=== PATIENT | female | born 1975 | race African-American/Black ===

== ENCOUNTER 2020-04-08 15:18 | Inpatient (IN) | payer MEDICAID, OTHER, SELFPAY ==
[~2020-04-08] VITALS: Ht 172.7 cm; Wt 150.4 kg
[2020-04-08] MEDS ORDERED: ZINC SULFATE 220mg CAP or TAB PO ONE (15:30)
[2020-04-08] MEDS ORDERED: methylPREDNISolone SOD SUCC 125 MG/2 ML VL IV ONE (15:30)
[2020-04-08] MEDS ORDERED: ASCORBIC ACID 500 MG TAB PO ONE (15:30)
[2020-04-08] MEDS ORDERED: AZITHROMYCIN 500MG/ 250ML 250 ML IV ONE (15:30)
[2020-04-08 16:37] LABS: Basophils # (auto) 0 10 ^3/uL (0-0.2); Basophils % (auto) 0.4 % (0.0-2.0); Eosinophils # (auto) 0 10 ^3/uL (0-0.8); Eosinophils % (auto) 0.1 % (0.0-7.0); Hematocrit 44.9 % (36.0-46.0); Lymphocytes # (auto) 0.5 10 ^3/uL (0.4-5.4); Lymphocytes % (auto) 5.7 % (10.0-50.0); Mean Corpuscular Hemoglobin 31.6 pg (28.0-32.0); Mean Corpuscular Hgb Conc. 33.4 g/dL (32.0-36.0); Mean Corpuscular Volume 94.7 fL (80.0-100.0); Monocytes # (auto) 0.7 10 ^3/uL (0-1.3); Neutrophils # (auto) 6.8 10 ^3/uL (1.6-8.6); Neutrophils % (auto) 84.8 % (37.0-80.0); Nucleated Red Blood Cells % 0.2 %; Platelet Count (auto) 225 10^3/uL (140-450); Red Blood Cells 4.75 10^6/uL (4.0-5.20); Red Cell Distribution Width 13.9 % (11.8-14.3)
[2020-04-08 16:53] LABS: Albumin 3.1 g/dL (3.4-5.0); Calcium 8.5 mg/dL (8.5-10.1); Potassium 4.2 mmol/L (3.5-5.1)
[2020-04-08 17:02] LABS: BUN/Creatinine Ratio 12.2; Bilirubin, Total 0.4 mg/dL (0.2-1.0); CRP High Sensitivity 12.5 mg/dL (< 0.3); Total Protein 8.9 g/dL (6.4-8.2)
[2020-04-08 17:05] LABS: Lactic Acid w/Reflex 2.4 mmol/L (0.4-2.0)
[2020-04-08] MEDS ORDERED: NITROGLYCERIN 0.4 MG SL TAB SL PRN ×2 (18:00→18:45)
[2020-04-08] MEDS ORDERED: MORPHINE SULF INJ 2 MG/ML SYRINGE 1ML IV PRN ×3 (18:00→18:45)
[2020-04-08] MEDS ORDERED: ACETAMINOPHEN 500 MG TAB PO PRN (18:45)
[2020-04-08] MEDS ORDERED: DOCUSATE SOD 100 MG CAP PO PRN (18:45)
[2020-04-08] MEDS ORDERED: REMDESIVIR PER PHARMACY 0 ML IV SCH (18:45)
[2020-04-08] MEDS ORDERED: ONDANSETRON HCL 4 MG/2 ML VIAL IV PRN (18:45)
[2020-04-08] MEDS ORDERED: HYDROcodone-ACET 5/325MG TAB PO PRN (18:45)
[2020-04-08] MEDS ORDERED: PIPERACILLIN-TAZOB 3.375GM 100 ML IV ONE (18:45)
[2020-04-08] MEDS ORDERED: LORazepam 0.5 MG TAB PO PRN (18:45)
[2020-04-08] MEDS ORDERED: PNEUMOCOCCAL VACC POLYS 25 MCG/0.5 ML VIAL IM ONE (18:45)
[2020-04-08] MEDS ORDERED: VANCOMYCIN PER PHARMACY 0 MG IV SCH (18:45)
[2020-04-08] MEDS ORDERED: ALUM & MAG HYDROX-SIMETH LIQ(MAALOX) 30 ML PO PRN (18:45)
[2020-04-08] MEDS ORDERED: INFLUENZA QUAD 2020-2021 0.5 ML SYRG IM ONE (18:45)
[2020-04-08] MEDS ORDERED: ALBUMIN 25% 100 ML IV ONE (18:45)
[2020-04-08] MEDS ORDERED: FUROSEMIDE 100 MG/10ML VIAL IV ONE (20:30)
[2020-04-08] MEDS ORDERED: ENOXAPARIN SOD 100 MG/1 ML SYRINGE SC ONE (21:00)
[2020-04-08 21:56] LABS: Basophils # (auto) 0 10 ^3/uL (0-0.2); Basophils % (auto) 0.3 % (0.0-2.0); Eosinophils # (auto) 0 10 ^3/uL (0-0.8); Hematocrit 45.9 % (36.0-46.0); Hemoglobin 15.4 g/dL (12.2-16.2); Lymphocytes # (auto) 0.4 10 ^3/uL (0.4-5.4); Mean Corpuscular Hemoglobin 32.1 pg (28.0-32.0); Mean Corpuscular Hgb Conc. 33.5 g/dL (32.0-36.0); Mean Corpuscular Volume 95.7 fL (80.0-100.0); Monocytes # (auto) 0.5 10 ^3/uL (0-1.3); Monocytes % (auto) 7.3 % (0.0-12.0); Neutrophils # (auto) 6.1 10 ^3/uL (1.6-8.6); Neutrophils % (auto) 86.4 % (37.0-80.0); Nucleated Red Blood Cells % 0.2 %; Platelet Count (auto) 211 10^3/uL (140-450); Red Blood Cells 4.79 10^6/uL (4.0-5.20); Red Cell Distribution Width 14.1 % (11.8-14.3)
[2020-04-08] MEDS: BUDESONIDE (INHALATION) 180 MCG IH IN SCH (22:00)
[2020-04-08 22:19] LABS: Cholesterol 170 mg/dL (< 200); HDL Cholesterol 28 mg/dL (40-59); LDL Cholesterol 114 mg/dL (< 100); Triglycerides 180 mg/dL (< 150)
[2020-04-08] MEDS ORDERED: IOHEXOL 350 MG/ML 100ML IJ ONE (22:47)
[2020-04-08 23:13] LABS: Albumin 3.2 g/dL (3.4-5.0); Calcium 9.1 mg/dL (8.5-10.1); Magnesium 2.7 mg/dL (1.6-2.6); Potassium 4.8 mmol/L (3.5-5.1)
[2020-04-08 23:21] LABS: BUN/Creatinine Ratio 15.4; Bilirubin, Total 0.4 mg/dL (0.2-1.0); CRP High Sensitivity 13.7 mg/dL (< 0.3)
[2020-04-09] MEDS: FAMOTIDINE (10MG/ML) 2ML VL IV SCH ×3 (02:05→21:52)
[2020-04-09] MEDS: ATORVASTATIN 20 MG TAB PO SCH ×2 (02:06→21:52)
[2020-04-09] MEDS: VANCOMYCIN 1GM/250ML 250 ML IV SCH ×2 (02:35→13:00)
[2020-04-09] MEDS: PIPERACILLIN-TAZOB 3.375GM 100 ML IV SCH ×3 (06:26→19:10)
[2020-04-09] MEDS: FUROSEMIDE 20 MG/2 ML VIAL IV SCH ×2 (06:26→19:10)
[2020-04-09] MEDS: BUDESONIDE (INHALATION) 180 MCG IH IN SCH ×2 (07:35→20:45)
[2020-04-09] MEDS: ALBUTEROL SULF HFA 90MCG INH 200DOSE IN PRN ×2 (07:36→20:45)
[2020-04-09 08:00] LABS: Albumin 3.4 g/dL (3.4-5.0); Calcium 8.6 mg/dL (8.5-10.1); Potassium 4.1 mmol/L (3.5-5.1)
[2020-04-09 08:03] LABS: BUN/Creatinine Ratio 17.5
[2020-04-09 08:05] LABS: Bilirubin, Total 0.5 mg/dL (0.2-1.0); Total Protein 8.7 g/dL (6.4-8.2)
[2020-04-09 08:12] LABS: Basophils # (auto) 0 10 ^3/uL (0-0.2); Basophils % (auto) 0.2 % (0.0-2.0); Eosinophils # (auto) 0 10 ^3/uL (0-0.8); Hematocrit 43.9 % (36.0-46.0); Hemoglobin 14.6 g/dL (12.2-16.2); Lymphocytes # (auto) 0.8 10 ^3/uL (0.4-5.4); Mean Corpuscular Hemoglobin 31.7 pg (28.0-32.0); Mean Corpuscular Hgb Conc. 33.3 g/dL (32.0-36.0); Mean Corpuscular Volume 95.2 fL (80.0-100.0); Monocytes # (auto) 0.8 10 ^3/uL (0-1.3); Monocytes % (auto) 14.3 % (0.0-12.0); Neutrophils # (auto) 4.3 10 ^3/uL (1.6-8.6); Neutrophils % (auto) 72.5 % (37.0-80.0); Nucleated Red Blood Cells % 0.5 %; Platelet Count (auto) 210 10^3/uL (140-450); Red Blood Cells 4.61 10^6/uL (4.0-5.20); Red Cell Distribution Width 13.9 % (11.8-14.3); White Blood Cell 5.9 10^3/uL (4.4-10.8)
[2020-04-09] MEDS ORDERED: ENOXAPARIN SOD 100 MG/1 ML SYRINGE SC SCH (10:00)
[2020-04-09] MEDS: DexAMETHasone SOD PHOS 10MG/1ML VIAL INJ IV SCH (10:00)
[2020-04-09] MEDS: ASPirin 81 mg TAB PO SCH (10:00)
[2020-04-09] MEDS: ZINC SULFATE 220mg CAP or TAB PO SCH (10:00)
[2020-04-09] MEDS: CHOLECALCIFEROL (VITD3) 2,000 UNIT CAP/TAB PO SCH (10:00)
[2020-04-09] MEDS: ASCORBIC ACID 1,000 MG TAB PO SCH (10:00)
[2020-04-09] MEDS ORDERED: REMDESIVIR 200 MG in NS 210ml LOADING DOSE ADULT IV ONE (15:00)
[2020-04-09 17:00] VITALS: BP 144/82
[2020-04-09] MEDS: ENOXAPARIN SOD 40 MG/0.4 ML SYRINGE SC SCH (21:52)
[2020-04-09] MEDS ORDERED: ENOXAPARIN SOD 40 MG/0.4 ML SYRINGE SC SCH (22:00)
[2020-04-10] VITALS (7 sets, daily range): BP systolic 112–151; BP diastolic 68–80
[2020-04-10] MEDS: PIPERACILLIN-TAZOB 3.375GM 100 ML IV SCH ×5 (00:11→23:15)
[2020-04-10] MEDS: FUROSEMIDE 20 MG/2 ML VIAL IV SCH ×2 (05:42→17:31)
[2020-04-10] MEDS: DexAMETHasone SOD PHOS 10MG/1ML VIAL INJ IV SCH (09:39)
[2020-04-10] MEDS: ASPirin 81 mg TAB PO SCH (09:40)
[2020-04-10] MEDS: ASCORBIC ACID 1,000 MG TAB PO SCH (09:40)
[2020-04-10] MEDS: ZINC SULFATE 220mg CAP or TAB PO SCH (09:40)
[2020-04-10] MEDS: FAMOTIDINE (10MG/ML) 2ML VL IV SCH ×2 (09:40→21:15)
[2020-04-10] MEDS: ENOXAPARIN SOD 40 MG/0.4 ML SYRINGE SC SCH ×2 (09:41→21:15)
[2020-04-10] MEDS: CHOLECALCIFEROL (VITD3) 2,000 UNIT CAP/TAB PO SCH (09:41)
[2020-04-10] MEDS: BUDESONIDE (INHALATION) 180 MCG IH IN SCH ×3 (10:00→21:37)
[2020-04-10] MEDS: ALBUTEROL SULF HFA 90MCG INH 200DOSE IN PRN ×2 (10:00→21:37)
[2020-04-10 10:37] LABS: Albumin 2.9 g/dL (3.4-5.0); Calcium 8.6 mg/dL (8.5-10.1); Potassium 4.1 mmol/L (3.5-5.1)
[2020-04-10 10:41] LABS: BUN/Creatinine Ratio 20.2; Bilirubin, Total 0.4 mg/dL (0.2-1.0); Total Protein 7.8 g/dL (6.4-8.2)
[2020-04-10] MEDS: REMDESIVIR 100 MG in SODIUM CHL 0.9% 250 ML IV SCH (16:13)
[2020-04-10] MEDS: ATORVASTATIN 20 MG TAB PO SCH (21:15)
[2020-04-11] MEDS ORDERED: guaiFENesin-DM 100/10mg/5ml SYR PO PRN (04:45)
[2020-04-11 05:00] VITALS: BP 127/72
[2020-04-11] MEDS: FUROSEMIDE 20 MG/2 ML VIAL IV SCH ×2 (06:09→17:48)
[2020-04-11] MEDS: PIPERACILLIN-TAZOB 3.375GM 100 ML IV SCH ×4 (06:09→23:35)
[2020-04-11 08:00] VITALS: BP 136/83
[2020-04-11 08:11] LABS: Potassium 3.9 mmol/L (3.5-5.1)
[2020-04-11 08:14] LABS: Albumin 2.8 g/dL (3.4-5.0); BUN/Creatinine Ratio 23.3; Calcium 8.4 mg/dL (8.5-10.1)
[2020-04-11 08:16] LABS: Bilirubin, Total 0.4 mg/dL (0.2-1.0); Total Protein 7.5 g/dL (6.4-8.2)
[2020-04-11] MEDS: DexAMETHasone SOD PHOS 10MG/1ML VIAL INJ IV SCH (09:21)
[2020-04-11] MEDS: ASPirin 81 mg TAB PO SCH (09:21)
[2020-04-11] MEDS: FAMOTIDINE (10MG/ML) 2ML VL IV SCH ×2 (09:21→21:25)
[2020-04-11] MEDS: ZINC SULFATE 220mg CAP or TAB PO SCH (09:21)
[2020-04-11] MEDS: ENOXAPARIN SOD 40 MG/0.4 ML SYRINGE SC SCH ×2 (09:22→21:25)
[2020-04-11] MEDS: CHOLECALCIFEROL (VITD3) 2,000 UNIT CAP/TAB PO SCH (09:22)
[2020-04-11] MEDS: ASCORBIC ACID 1,000 MG TAB PO SCH (09:22)
[2020-04-11] MEDS: BUDESONIDE (INHALATION) 180 MCG IH IN SCH (09:56)
[2020-04-11] MEDS: ALBUTEROL SULF HFA 90MCG INH 200DOSE IN PRN (09:56)
[2020-04-11] MEDS ORDERED: POTASSIUM EFFERVESENT TAB 25 MEQ PO SCH (10:00)
[2020-04-11] MEDS ORDERED: POTASSIUM EFFERVESENT TAB 25 MEQ PO ONE (10:00)
[2020-04-11 13:00] VITALS: BP 122/80
[2020-04-11] MEDS: REMDESIVIR 100 MG in SODIUM CHL 0.9% 250 ML IV SCH (15:51)
[2020-04-11 17:00] VITALS: BP 118/62
[2020-04-11] MEDS: ATORVASTATIN 20 MG TAB PO SCH (21:25)
[2020-04-11 22:00] VITALS: BP 142/73
[2020-04-12 05:00] VITALS: BP 113/73
[2020-04-12] MEDS: FUROSEMIDE 20 MG/2 ML VIAL IV SCH ×2 (06:30→17:31)
[2020-04-12] MEDS: PIPERACILLIN-TAZOB 3.375GM 100 ML IV SCH ×3 (06:30→17:32)
[2020-04-12 09:00] VITALS: BP 132/78
[2020-04-12 09:48] LABS: Basophils # (auto) 0 10 ^3/uL (0-0.2); Basophils % (auto) 0.1 % (0.0-2.0); Eosinophils # (auto) 0.1 10 ^3/uL (0-0.8); Eosinophils % (auto) 0.7 % (0.0-7.0); Hemoglobin 15.4 g/dL (12.2-16.2); Lymphocytes # (auto) 1.2 10 ^3/uL (0.4-5.4); Lymphocytes % (auto) 13.7 % (10.0-50.0); Mean Corpuscular Hemoglobin 31.7 pg (28.0-32.0); Mean Corpuscular Hgb Conc. 33.5 g/dL (32.0-36.0); Mean Corpuscular Volume 94.9 fL (80.0-100.0); Monocytes # (auto) 0.8 10 ^3/uL (0-1.3); Monocytes % (auto) 9.4 % (0.0-12.0); Neutrophils # (auto) 6.7 10 ^3/uL (1.6-8.6); Neutrophils % (auto) 76.1 % (37.0-80.0); Nucleated Red Blood Cells % 0.1 %; Platelet Count (auto) 318 10^3/uL (140-450); Red Blood Cells 4.85 10^6/uL (4.0-5.20); Red Cell Distribution Width 13.6 % (11.8-14.3); White Blood Cell 8.8 10^3/uL (4.4-10.8)
[2020-04-12] MEDS: BUDESONIDE (INHALATION) 180 MCG IH IN SCH ×2 (10:00→21:48)
[2020-04-12] MEDS: ASCORBIC ACID 1,000 MG TAB PO SCH (10:01)
[2020-04-12] MEDS: CHOLECALCIFEROL (VITD3) 2,000 UNIT CAP/TAB PO SCH (10:02)
[2020-04-12] MEDS: ZINC SULFATE 220mg CAP or TAB PO SCH (10:02)
[2020-04-12] MEDS: DexAMETHasone SOD PHOS 10MG/1ML VIAL INJ IV SCH (10:03)
[2020-04-12] MEDS: POTASSIUM EFFERVESENT TAB 25 MEQ PO SCH (10:03)
[2020-04-12] MEDS: FAMOTIDINE (10MG/ML) 2ML VL IV SCH ×2 (10:04→21:48)
[2020-04-12 10:25] LABS: BUN/Creatinine Ratio 21.8; Bilirubin, Total 0.5 mg/dL (0.2-1.0); Calcium 8.9 mg/dL (8.5-10.1); Total Protein 7.8 g/dL (6.4-8.2)
[2020-04-12] MEDS: ENOXAPARIN SOD 40 MG/0.4 ML SYRINGE SC SCH ×2 (11:44→21:49)
[2020-04-12] MEDS: ASPirin 81 mg TAB PO SCH (11:44)
[2020-04-12] MEDS: ALBUTEROL SULF HFA 90MCG INH 200DOSE IN PRN ×2 (12:50→21:49)
[2020-04-12 13:00] VITALS: BP 115/78
[2020-04-12] MEDS: REMDESIVIR 100 MG in SODIUM CHL 0.9% 250 ML IV SCH (15:36)
[2020-04-12 17:15] VITALS: BP 110/73
[2020-04-12 20:00] VITALS: BP 130/83
[2020-04-12 21:43] VITALS: BP 130/83
[2020-04-12] MEDS: ATORVASTATIN 20 MG TAB PO SCH (21:48)
[2020-04-13] MEDS: PIPERACILLIN-TAZOB 3.375GM 100 ML IV SCH ×5 (00:22→23:11)
[2020-04-13 05:00] VITALS: BP 115/78
[2020-04-13] MEDS: FUROSEMIDE 20 MG/2 ML VIAL IV SCH ×2 (05:34→18:04)
[2020-04-13 09:00] VITALS: BP 96/47
[2020-04-13] MEDS: ASCORBIC ACID 1,000 MG TAB PO SCH (09:26)
[2020-04-13] MEDS: ASPirin 81 mg TAB PO SCH (09:26)
[2020-04-13] MEDS: CHOLECALCIFEROL (VITD3) 2,000 UNIT CAP/TAB PO SCH (09:27)
[2020-04-13] MEDS: POTASSIUM EFFERVESENT TAB 25 MEQ PO SCH (09:27)
[2020-04-13] MEDS: FAMOTIDINE (10MG/ML) 2ML VL IV SCH ×2 (09:28→23:10)
[2020-04-13] MEDS: DexAMETHasone SOD PHOS 10MG/1ML VIAL INJ IV SCH (09:28)
[2020-04-13] MEDS: ENOXAPARIN SOD 40 MG/0.4 ML SYRINGE SC SCH ×2 (09:28→21:46)
[2020-04-13] MEDS: BUDESONIDE (INHALATION) 180 MCG IH IN SCH ×2 (09:55→20:53)
[2020-04-13] MEDS: ZINC SULFATE 220mg CAP or TAB PO SCH (10:05)
[2020-04-13 12:57] VITALS: BP 104/73
[2020-04-13] MEDS: REMDESIVIR 100 MG in SODIUM CHL 0.9% 250 ML IV SCH (16:00)
[2020-04-13 17:00] VITALS: BP 103/72
[2020-04-13] MEDS: ALBUTEROL SULF HFA 90MCG INH 200DOSE IN PRN (20:53)
[2020-04-13] MEDS: ATORVASTATIN 20 MG TAB PO SCH (21:46)
[2020-04-13 22:00] VITALS: BP 110/75
[2020-04-14 05:47] VITALS: BP 114/73
[2020-04-14] MEDS: PIPERACILLIN-TAZOB 3.375GM 100 ML IV SCH ×4 (06:07→23:49)
[2020-04-14] MEDS: FUROSEMIDE 20 MG/2 ML VIAL IV SCH ×2 (06:07→18:30)
[2020-04-14] MEDS: DexAMETHasone SOD PHOS 10MG/1ML VIAL INJ IV SCH (09:26)
[2020-04-14] MEDS: ASPirin 81 mg TAB PO SCH (09:27)
[2020-04-14] MEDS: ASCORBIC ACID 1,000 MG TAB PO SCH (09:27)
[2020-04-14] MEDS: FAMOTIDINE (10MG/ML) 2ML VL IV SCH ×2 (09:27→21:56)
[2020-04-14] MEDS: POTASSIUM EFFERVESENT TAB 25 MEQ PO SCH (09:27)
[2020-04-14] MEDS: ZINC SULFATE 220mg CAP or TAB PO SCH (09:27)
[2020-04-14] MEDS: ENOXAPARIN SOD 40 MG/0.4 ML SYRINGE SC SCH ×2 (09:28→21:56)
[2020-04-14] MEDS: CHOLECALCIFEROL (VITD3) 2,000 UNIT CAP/TAB PO SCH (09:28)
[2020-04-14] MEDS: BUDESONIDE (INHALATION) 180 MCG IH IN SCH ×2 (10:00→22:00)
[2020-04-14 20:00] VITALS: BP 126/68
[2020-04-14 21:46] VITALS: BP 126/68
[2020-04-14] MEDS: ATORVASTATIN 20 MG TAB PO SCH (21:56)
[2020-04-14] MEDS: ALBUTEROL SULF HFA 90MCG INH 200DOSE IN PRN (23:43)
[2020-04-15 05:00] VITALS: BP 113/70
[2020-04-15] MEDS: FUROSEMIDE 20 MG/2 ML VIAL IV SCH ×2 (06:18→18:13)
[2020-04-15] MEDS: PIPERACILLIN-TAZOB 3.375GM 100 ML IV SCH ×3 (06:18→18:13)
[2020-04-15 08:59] LABS: Basophils # (auto) 0 10 ^3/uL (0-0.2); Basophils % (auto) 0.4 % (0.0-2.0); Eosinophils # (auto) 0 10 ^3/uL (0-0.8); Eosinophils % (auto) 0.3 % (0.0-7.0); Hematocrit 48.1 % (36.0-46.0); Hemoglobin 16.2 g/dL (12.2-16.2); Lymphocytes # (auto) 1.3 10 ^3/uL (0.4-5.4); Lymphocytes % (auto) 11.7 % (10.0-50.0); Mean Corpuscular Hemoglobin 31.9 pg (28.0-32.0); Mean Corpuscular Hgb Conc. 33.6 g/dL (32.0-36.0); Mean Corpuscular Volume 94.7 fL (80.0-100.0); Neutrophils # (auto) 8.4 10 ^3/uL (1.6-8.6); Neutrophils % (auto) 78.6 % (37.0-80.0); Nucleated Red Blood Cells % 0.1 %; Platelet Count (auto) 499 10^3/uL (140-450); Red Blood Cells 5.07 10^6/uL (4.0-5.20); Red Cell Distribution Width 13.9 % (11.8-14.3); White Blood Cell 10.7 10^3/uL (4.4-10.8)
[2020-04-15 09:00] VITALS: BP 116/78
[2020-04-15 09:08] LABS: BUN/Creatinine Ratio 21.5; Calcium 9.1 mg/dL (8.5-10.1); Potassium 3.9 mmol/L (3.5-5.1)
[2020-04-15] MEDS: BUDESONIDE (INHALATION) 180 MCG IH IN SCH ×2 (10:00→21:21)
[2020-04-15] MEDS: DexAMETHasone SOD PHOS 10MG/1ML VIAL INJ IV SCH (10:44)
[2020-04-15] MEDS: ASPirin 81 mg TAB PO SCH (10:44)
[2020-04-15] MEDS: FAMOTIDINE (10MG/ML) 2ML VL IV SCH ×2 (10:44→21:57)
[2020-04-15] MEDS: ZINC SULFATE 220mg CAP or TAB PO SCH (10:44)
[2020-04-15] MEDS: ENOXAPARIN SOD 40 MG/0.4 ML SYRINGE SC SCH ×2 (10:45→21:57)
[2020-04-15] MEDS: ASCORBIC ACID 1,000 MG TAB PO SCH (10:45)
[2020-04-15] MEDS: CHOLECALCIFEROL (VITD3) 2,000 UNIT CAP/TAB PO SCH (10:45)
[2020-04-15] MEDS: POTASSIUM EFFERVESENT TAB 25 MEQ PO SCH (10:45)
[2020-04-15] MEDS: ALBUTEROL SULF HFA 90MCG INH 200DOSE IN PRN ×2 (12:49→21:21)
[2020-04-15 13:00] VITALS: BP 142/79
[2020-04-15 17:00] VITALS: BP 118/69
[2020-04-15 20:00] VITALS: BP 119/72
[2020-04-15] MEDS: ATORVASTATIN 20 MG TAB PO SCH (21:57)
[2020-04-15 22:00] VITALS: BP 119/72
[2020-04-16] MEDS: PIPERACILLIN-TAZOB 3.375GM 100 ML IV SCH ×4 (00:35→17:37)
[2020-04-16 05:00] VITALS: BP 114/73
[2020-04-16] MEDS: FUROSEMIDE 20 MG/2 ML VIAL IV SCH ×2 (05:17→17:37)
[2020-04-16 07:05] LABS: Potassium 4.1 mmol/L (3.5-5.1)
[2020-04-16 07:09] LABS: Basophils # (auto) 0 10 ^3/uL (0-0.2); Basophils % (auto) 0.3 % (0.0-2.0); Eosinophils # (auto) 0 10 ^3/uL (0-0.8); Eosinophils % (auto) 0.2 % (0.0-7.0); Hematocrit 43.5 % (36.0-46.0); Hemoglobin 14.4 g/dL (12.2-16.2); Lymphocytes # (auto) 1.3 10 ^3/uL (0.4-5.4); Lymphocytes % (auto) 13.4 % (10.0-50.0); Mean Corpuscular Hemoglobin 31.6 pg (28.0-32.0); Mean Corpuscular Volume 95.9 fL (80.0-100.0); Monocytes % (auto) 9.9 % (0.0-12.0); Neutrophils # (auto) 7.3 10 ^3/uL (1.6-8.6); Neutrophils % (auto) 76.2 % (37.0-80.0); Platelet Count (auto) 451 10^3/uL (140-450); Red Blood Cells 4.54 10^6/uL (4.0-5.20); Red Cell Distribution Width 13.7 % (11.8-14.3); White Blood Cell 9.6 10^3/uL (4.4-10.8)
[2020-04-16 07:21] LABS: BUN/Creatinine Ratio 18.3; Calcium 9.5 mg/dL (8.5-10.1)
[2020-04-16] MEDS: BUDESONIDE (INHALATION) 180 MCG IH IN SCH ×2 (07:36→21:34)
[2020-04-16] MEDS: ALBUTEROL SULF HFA 90MCG INH 200DOSE IN PRN ×2 (07:36→21:34)
[2020-04-16 08:00] VITALS: BP 107/73
[2020-04-16] MEDS: DexAMETHasone SOD PHOS 10MG/1ML VIAL INJ IV SCH (10:18)
[2020-04-16] MEDS: FAMOTIDINE (10MG/ML) 2ML VL IV SCH ×2 (10:19→21:36)
[2020-04-16] MEDS: POTASSIUM EFFERVESENT TAB 25 MEQ PO SCH (10:19)
[2020-04-16] MEDS: ZINC SULFATE 220mg CAP or TAB PO SCH (10:19)
[2020-04-16] MEDS: ASPirin 81 mg TAB PO SCH (10:19)
[2020-04-16] MEDS: ASCORBIC ACID 1,000 MG TAB PO SCH (10:20)
[2020-04-16] MEDS: CHOLECALCIFEROL (VITD3) 2,000 UNIT CAP/TAB PO SCH (10:20)
[2020-04-16] MEDS: ENOXAPARIN SOD 40 MG/0.4 ML SYRINGE SC SCH ×2 (10:20→21:36)
[2020-04-16 13:00] VITALS: BP 104/62
[2020-04-16 17:00] VITALS: BP 130/72
[2020-04-16] MEDS: ATORVASTATIN 20 MG TAB PO SCH (21:36)
[2020-04-17 05:00] VITALS: BP 134/77
[2020-04-17] MEDS: BUDESONIDE (INHALATION) 180 MCG IH IN SCH (06:29)
[2020-04-17] MEDS: ALBUTEROL SULF HFA 90MCG INH 200DOSE IN PRN (06:29)
[2020-04-17] MEDS: PIPERACILLIN-TAZOB 3.375GM 100 ML IV SCH ×3 (06:30→11:39)
[2020-04-17] MEDS: FUROSEMIDE 20 MG/2 ML VIAL IV SCH (06:31)
[2020-04-17 09:00] VITALS: BP 128/73
[2020-04-17] MEDS: ASPirin 81 mg TAB PO SCH (09:43)
[2020-04-17] MEDS: DexAMETHasone SOD PHOS 10MG/1ML VIAL INJ IV SCH (09:43)
[2020-04-17] MEDS: ENOXAPARIN SOD 40 MG/0.4 ML SYRINGE SC SCH (09:44)
[2020-04-17] MEDS: ASCORBIC ACID 1,000 MG TAB PO SCH (09:44)
[2020-04-17] MEDS: ZINC SULFATE 220mg CAP or TAB PO SCH (09:44)
[2020-04-17] MEDS: CHOLECALCIFEROL (VITD3) 2,000 UNIT CAP/TAB PO SCH (09:44)
[2020-04-17] MEDS: POTASSIUM EFFERVESENT TAB 25 MEQ PO SCH (09:44)
[2020-04-17] MEDS: FAMOTIDINE (10MG/ML) 2ML VL IV SCH (09:45)
[2020-04-17] MEDS ORDERED: DOXY-340 PO (12:02)
[2020-04-17] MEDS ORDERED: MULT-1058 PO (12:03)
[2020-04-17] MEDS ORDERED: ASPI-231 PO (12:03)
[2020-04-17 12:18] VITALS: BP 134/77
[2020-04-17 13:00] VITALS: BP 118/72
== END 2020-04-17 14:32 | disposition home or self-care (01) | DRG 720 ==
LOC: ER 15:18 → TELE 17:50 → TELE-EAST 04-09 15:10
PROVIDERS: ADMIT Hospitalist; ATTEND Internal Medicine Nephrology
PROC: XW033E5 Introduction of Remdesivir Anti-infective into Peripheral Vein, Percutaneous Approach, New Technology Group 5 (ICD-10-PCS; principal; 2020-04-08)
DX: A41.89 Other specified sepsis (principal); J96.01 Acute respiratory failure with hypoxia; U07.1 COVID-19; J12.89 Other viral pneumonia; N17.0 Acute kidney failure with tubular necrosis; E44.1 Mild protein-calorie malnutrition; Z68.43 Body mass index [BMI] 50.0-59.9, adult; E66.01 Morbid (severe) obesity due to excess calories; E78.5 Hyperlipidemia, unspecified; I12.9 Hypertensive chronic kidney disease with stage 1 through stage 4 chronic kidney disease, or unspecified chronic kidney disease; N18.30 Chronic kidney disease, stage 3 unspecified; R73.9 Hyperglycemia, unspecified; R65.20 Severe sepsis without septic shock; Z83.3 Family history of diabetes mellitus; Z82.49 Family history of ischemic heart disease and other diseases of the circulatory system
CPT/HCPCS: 36415; 36600; 71045; 71275; 80048; 80053; 80061; 82728; 82805; 83036; 83605; 83615; 83735; 83880; 84443; 84484; 85025; 85379; 86141; 87040; 87426; 93005; 93970; 94640; 96365; 96366; 96375; 99291; G0378; J1100; J2543; J3490; P9047

== ENCOUNTER 2020-08-15 06:30 | Emergency (ER) | payer MEDICAID ==
[~2020-08-15] VITALS: Ht 170.2 cm; Wt 158.8 kg
[~2020-08-15 06:30] MED LIST: DOXY-340 PO; MULT-1058 PO
[2020-08-15 07:58] LABS: Basophils # (auto) 0.1 10 ^3/uL (0-0.2); Basophils % (auto) 0.7 % (0.0-2.0); Eosinophils # (auto) 0.2 10 ^3/uL (0-0.8); Eosinophils % (auto) 3.1 % (0.0-7.0); Hematocrit 40.5 % (36.0-46.0); Hemoglobin 13.8 g/dL (12.2-16.2); Lymphocytes # (auto) 2.3 10 ^3/uL (0.4-5.4); Lymphocytes % (auto) 31.5 % (10.0-50.0); Mean Corpuscular Hemoglobin 32.2 pg (28.0-32.0); Mean Corpuscular Hgb Conc. 34.1 g/dL (32.0-36.0); Mean Corpuscular Volume 94.7 fL (80.0-100.0); Monocytes # (auto) 0.7 10 ^3/uL (0-1.3); Monocytes % (auto) 9.3 % (0.0-12.0); Neutrophils # (auto) 4.1 10 ^3/uL (1.6-8.6); Neutrophils % (auto) 55.4 % (37.0-80.0); Nucleated Red Blood Cells % 0.2 %; Platelet Count (auto) 244 10^3/uL (140-450); Red Blood Cells 4.28 10^6/uL (4.0-5.20); Red Cell Distribution Width 13.1 % (11.8-14.3); White Blood Cell 7.4 10^3/uL (4.4-10.8)
[2020-08-15 08:01] LABS: Alanine Aminotransferase 38 U/L (13-56); Albumin 3.4 g/dL (3.4-5.0); Anion Gap 10 (5-15); Aspartate Aminotransferase 25 U/L (15-37); BUN/Creatinine Ratio 20.2; Blood Urea Nitrogen 18 mg/dL (7-18); Calcium 8.2 mg/dL (8.5-10.1); Carbon Dioxide 23 mmol/L (21-32); Chloride 105 mmol/L (98-107); GFR African American 87 mL/min; GFR Non-African American 72 mL/min; Glucose 154 mg/dL (74-106); Potassium 3.7 mmol/L (3.5-5.1); Sodium 138 mmol/L (136-145)
[2020-08-15 08:06] LABS: Alkaline Phosphatase 78 U/L (45-117); Bilirubin, Total 0.3 mg/dL (0.2-1.0); Total Protein 7.1 g/dL (6.4-8.2)
[2020-08-15 08:48] LABS: Urine Bacteria FEW /hpf (None Seen); Urine Blood Negative /uL (Negative); Urine WBC 1 /hpf (0 - 5)
[2020-08-15 09:04] VITALS: BP 125/63
[2020-08-15] MEDS ORDERED: cefTRIAXone 1GM/50ML D5W 50 ML IV ONE (09:30)
== END 2020-08-15 10:21 | disposition home or self-care (01) ==
LOC: ER 06:30
DX: J18.9 Pneumonia, unspecified organism (principal); R73.9 Hyperglycemia, unspecified
CPT/HCPCS: 36415; 71045; 80053; 81001; 83036; 83880; 84484; 85025; 93970; 96365; 99285; J0696

== ENCOUNTER 2021-04-15 05:20 | Emergency (ER) | payer MEDICAID ==
[~2021-04-15] VITALS: Ht 170.2 cm; Wt 156.5 kg
[2021-04-15 07:40] LABS: Basophils # (auto) 0.1 10 ^3/uL (0-0.2); Basophils % (auto) 0.9 % (0.0-2.0); Eosinophils # (auto) 0.3 10 ^3/uL (0-0.8); Eosinophils % (auto) 4.5 % (0.0-7.0); Hematocrit 40.8 % (36.0-46.0); Hemoglobin 13.9 g/dL (12.2-16.2); Lymphocytes % (auto) 32.3 % (10.0-50.0); Mean Corpuscular Hemoglobin 32.6 pg (28.0-32.0); Mean Corpuscular Hgb Conc. 34.1 g/dL (32.0-36.0); Mean Corpuscular Volume 95.6 fL (80.0-100.0); Monocytes # (auto) 0.5 10 ^3/uL (0-1.3); Monocytes % (auto) 7.8 % (0.0-12.0); Neutrophils # (auto) 3.4 10 ^3/uL (1.6-8.6); Neutrophils % (auto) 54.5 % (37.0-80.0); Nucleated Red Blood Cells % 0.1 %; Red Blood Cells 4.27 10^6/uL (4.0-5.20); Red Cell Distribution Width 13.4 % (11.8-14.3); White Blood Cell 6.3 10^3/uL (4.4-10.8)
[2021-04-15 07:41] VITALS: BP 139/107
[2021-04-15 07:56] LABS: Albumin 3.7 g/dL (3.4-5.0); Magnesium 2.7 mg/dL (1.6-2.6)
[2021-04-15 08:01] LABS: BUN/Creatinine Ratio 23.5; Bilirubin, Total 0.4 mg/dL (0.2-1.0); Total Protein 7.6 g/dL (6.4-8.2)
[2021-04-15] MEDS ORDERED: IBUP800T27 PO (09:16)
[2021-04-15] MEDS ORDERED: AZIT500T66 PO (09:16)
== END 2021-04-15 09:23 | disposition home or self-care (01) ==
LOC: ER 05:20
DX: R07.89 Other chest pain (principal); J20.9 Acute bronchitis, unspecified; Z79.1 Long term (current) use of non-steroidal anti-inflammatories (NSAID); Z79.2 Long term (current) use of antibiotics; Z79.899 Other long term (current) drug therapy
CPT/HCPCS: 36415; 71045; 71046; 80053; 83735; 84484; 85025; 93005

== ENCOUNTER 2021-09-27 05:27 | Emergency (ER) | payer MEDICAID ==
[~2021-09-27] VITALS: Ht 170.2 cm; Wt 165.6 kg
[~2021-09-27 05:27] MED LIST changes: +AZIT500T66 PO; +IBUP800T27 PO
[2021-09-27 07:55] LABS: Basophils # (auto) 0 10 ^3/uL (0-0.2); Basophils % (auto) 0.4 % (0.0-2.0); Eosinophils # (auto) 0.1 10 ^3/uL (0-0.8); Eosinophils % (auto) 1.3 % (0.0-7.0); Hematocrit 41.9 % (36.0-46.0); Hemoglobin 14.5 g/dL (12.2-16.2); Lymphocytes # (auto) 1.3 10 ^3/uL (0.4-5.4); Mean Corpuscular Hgb Conc. 34.7 g/dL (32.0-36.0); Mean Corpuscular Volume 95.1 fL (80.0-100.0); Monocytes # (auto) 0.6 10 ^3/uL (0-1.3); Monocytes % (auto) 7.5 % (0.0-12.0); Neutrophils # (auto) 6.1 10 ^3/uL (1.6-8.6); Neutrophils % (auto) 74.8 % (37.0-80.0); Red Cell Distribution Width 13.3 % (11.8-14.3); White Blood Cell 8.1 10^3/uL (4.4-10.8)
[2021-09-27 08:16] LABS: Albumin 3.6 g/dL (3.4-5.0); Calcium 8.7 mg/dL (8.5-10.1); Potassium 4.1 mmol/L (3.5-5.1)
[2021-09-27 08:19] LABS: Bilirubin, Total 0.4 mg/dL (0.2-1.0); Total Protein 7.7 g/dL (6.4-8.2)
[2021-09-27] MEDS ORDERED: DEXT1SYP9 GT (13:40)
[2021-09-27] MEDS ORDERED: AZIT500T PO (13:40)
[2021-09-27] MEDS ORDERED: NAP500T PO (13:40)
[2021-09-27 14:49] VITALS: BP 180/102
== END 2021-09-27 14:52 | disposition home or self-care (01) ==
LOC: ER 05:27
DX: J20.9 Acute bronchitis, unspecified (principal); Z20.822 Contact with and (suspected) exposure to COVID-19
CPT/HCPCS: 36415; 71045; 80053; 83880; 84484; 85025; 93005

== ENCOUNTER 2021-11-16 22:28 | Emergency (ER) | payer MEDICAID ==
[~2021-11-16 22:28] MED LIST changes: +AZIT500T PO; +DEXT1SYP9 GT; +NAP500T PO
[2021-11-17 03:40] VITALS: BP 143/91
== END 2021-11-17 04:46 | disposition home or self-care (01) ==
LOC: ER 22:28
DX: M25.561 Pain in right knee (principal); W10.9XXA Fall (on) (from) unspecified stairs and steps, initial encounter; Y93.01 Activity, walking, marching and hiking; Y92.89 Other specified places as the place of occurrence of the external cause; Y99.8 Other external cause status
CPT/HCPCS: 73562

== ENCOUNTER 2022-01-23 23:57 | Emergency (ER) | payer OTHER, MEDICAID ==
[~2022-01-23] VITALS: Ht 170.2 cm; Wt 161.0 kg
[2022-01-24 00:32] VITALS: BP 139/82
== END 2022-01-24 03:23 | disposition left against medical advice (07) ==
LOC: ER 23:57
DX: M79.672 Pain in left foot (principal); Z53.21 Procedure and treatment not carried out due to patient leaving prior to being seen by health care provider